=== PATIENT | female | born 1965 | race Caucasian/White ===

== ENCOUNTER 2018-09-29 11:23 | Emergency (ER) | payer OTHER ==
[~2018-09-29] VITALS: Ht 172.7 cm; Wt 74.8 kg
[2018-09-29] MEDS ORDERED: PROMETH-CODEIN 65 ML PO (12:44)
[2018-09-29] MEDS ORDERED: PREDNISONE 20 M20 MG PO (12:44)
[2018-09-29 13:01] VITALS: BP 132/59
== END 2018-09-29 13:02 | disposition home or self-care (01) ==
LOC: ER 11:23
DX: J20.9 Acute bronchitis, unspecified (principal)